=== PATIENT | male | born 1980 | race Caucasian/White ===

== ENCOUNTER 2020-05-20 15:47 | Outpatient (REF) | payer MEDICAID, SELFPAY ==
[2020-05-22 15:38] LABS: COVID-19 RT-PCR Result Not Detected ((See Note))
== END 2020-05-20 16:07 ==
LOC: LBN 15:47
PROVIDERS: PCP Nurse Practitioner Adult Health; Visit Provider Nurse Practitioner Adult Health
DX: I63.512 Cerebral infarction due to unspecified occlusion or stenosis of left middle cerebral artery (principal); G81.91 Hemiplegia, unspecified affecting right dominant side; I69.391 Dysphagia following cerebral infarction
CPT/HCPCS: U0003

== ENCOUNTER 2020-05-27 11:22 | Outpatient (REF) | payer MEDICAID, SELFPAY ==
[2020-05-29 18:28] LABS: COVID-19 RT-PCR Result Not Detected ((See Note))
== END 2020-05-27 11:42 ==
LOC: LBN 11:22
PROVIDERS: PCP Nurse Practitioner Adult Health; Visit Provider Nurse Practitioner Adult Health
DX: Z11.59 Encounter for screening for other viral diseases (principal)
CPT/HCPCS: U0003

== ENCOUNTER 2020-06-05 15:48 | Outpatient (REF) | payer MEDICAID, SELFPAY ==
[2020-06-06 02:30] LABS: COVID-19 RT-PCR UVMMC Result Negative (Negative)
== END 2020-06-05 16:08 ==
LOC: LBN 15:48
PROVIDERS: PCP Family Medicine; Visit Provider Nurse Practitioner Adult Health
DX: Z11.59 Encounter for screening for other viral diseases (principal)
CPT/HCPCS: U0003

== ENCOUNTER 2020-06-10 11:54 | Outpatient (REF) | payer MEDICAID, SELFPAY ==
[2020-06-10 12:54] LABS: HCT 43.7 % (40.0-50.0)
== END 2020-06-10 12:14 ==
LOC: LBN 11:54
PROVIDERS: PCP Family Medicine; Visit Provider Family Medicine
DX: K64.9 Unspecified hemorrhoids (principal)
CPT/HCPCS: 85014; 85018

== ENCOUNTER 2020-12-08 19:42 | Outpatient (REF) | payer MEDICAID, SELFPAY ==
[2020-12-11 17:57] LABS: COVID-19 RT-PCR Result Not Detected ((See Note))
== END 2020-12-08 19:43 | disposition home or self-care (01) ==
LOC: LBN 19:42
PROVIDERS: PCP Family Medicine; Visit Provider Nurse Practitioner Adult Health
DX: Z20.822 Contact with and (suspected) exposure to COVID-19 (principal)
CPT/HCPCS: U0003

== ENCOUNTER 2020-12-13 20:30 | Outpatient (REF) | payer MEDICAID, SELFPAY ==
[2020-12-14 16:28] LABS: COVID-19 RT-PCR Result Not Detected ((See Note))
== END 2020-12-13 20:31 | disposition home or self-care (01) ==
LOC: LBN 20:30
PROVIDERS: PCP Family Medicine; Visit Provider Nurse Practitioner Adult Health
DX: Z20.822 Contact with and (suspected) exposure to COVID-19 (principal)
CPT/HCPCS: U0003

== ENCOUNTER 2021-04-30 02:14 | Outpatient (CLI) | payer MEDICAID, SELFPAY ==
--- NOTE | 2021-04-30 11:32 | DI.RAD_ITS ---
Exam(s) XR FOOT RT COMPLETE EXAM: XR FOOT RT COMPLETE CLINICAL HISTORY: S/P FALL, PAIN, M79.606. TECHNIQUE: 2D digital imaging was performed. COMPARISON: No exams were available for comparison FINDINGS: There is no evidence of fracture nor diastasis of the Lisfranc joint. No osseous lesions nor erosion s. Multiple small metallic densities are seen posterior to the ankle, located posterolaterally. The re lowermost density projects over the upper calcaneus. No obvious degenerative changes. IMPRESSION: DATA REPOSITORY: RADIATION DOSE DELIVERED:
--- NOTE | 2021-04-30 11:32 | DI.RAD_ITS ---
Exam(s) XR TIB/FIB RT EXAM: XR TIB/FIB RT CLINICAL HISTORY: S/P FALL, PAIN, M79.606. TECHNIQUE: 2D digital imaging was performed. COMPARISON: No exams were available for comparison FINDINGS: There is no evidence fracture nor dislocation. Radiopaque foreign body metallic densities are noted behind the ankle. Is no radiographic evidence of osteomyelitis. IMPRESSION: DATA REPOSITORY: RADIATION DOSE DELIVERED:
--- NOTE | 2021-04-30 11:34 | DI.RAD_ITS ---
Exam(s) XR ANKLE RT COMPLETE EXAM: XR ANKLE RT COMPLETE CLINICAL HISTORY: S/P FALL, PAIN, M79.606. TECHNIQUE: 2D digital imaging was performed. COMPARISON: No exams were available for comparison FINDINGS: There are 4 metallic density seen posteriorly lateral of center. Lower most is seen projected over t he posterior aspect the calcaneus. These do not have appearance of typical surgical clips and theref ore may indeed represent metallic foreign bodies at this location. No obvious disruption of the Achi lles tendon. Calcaneus appears unremarkable as does the visualized ankle joint. IMPRESSION: DATA REPOSITORY: RADIATION DOSE DELIVERED:
== END 2021-04-30 02:34 ==
PROVIDERS: PCP Family Medicine; Visit Provider Nurse Practitioner Family
DX: G89.11 Acute pain due to trauma (principal); M79.661 Pain in right lower leg; M79.671 Pain in right foot; M25.571 Pain in right ankle and joints of right foot; W19.XXXA Unspecified fall, initial encounter
CPT/HCPCS: 73590; 73610; 73630

== ENCOUNTER 2021-11-07 14:14 | Outpatient (REF) | payer MEDICAID, SELFPAY ==
[2021-11-07 15:17] LABS: Abs Immature Grans 0.02 10^3/uL (0.0-0.06); Absolute Basophil Count 0.04 10^3/uL (0.0-0.2); Absolute Eosinophil Count 0.31 10^3/uL (0.0-0.7); Absolute Lymphocyte Count 2.95 10^3/uL (1.2-3.4); Absolute Monocyte Count 0.68 10^3/uL (0.1-0.8); Absolute Neutrophil Count 2.59 10^3/uL (1.2-6.7); Basophils % 0.6; Eosinophils % 4.7; HCT 46.5 % (40.0-50.0); HGB 15.4 g/dL (13.5-17.5); Immature Grans % 0.3; Lymphocytes % 44.8; MCHC 33.1 % (32.0-36.0); MCV 93.6 fL (80-95); MPV 9.6 fL (8.0-11.0); Monocytes % 10.3; Neutrophils % 39.3; Nucleated RBC 0 %; Platelet Count 238 10^3/uL (130-400); RBC 4.97 10^6/uL (4.36-5.78); RDW 13.9 % (11.8-14.1); RDW-SD 47.8 fL; WBC 6.59 10^3/uL (4.4-10.8)
[2021-11-07 15:23] LABS: VALPROIC ACID 116.1 ug/mL
[2021-11-07 15:29] LABS: ALT 29 U/L (16-63); AST 16 U/L (15-37); Alkaline Phosphatase 57 U/L (46-116); Anion Gap 10.1 mmol/L (3-11); BUN 15 mg/dL (7-18); Bilirubin, Total 0.4 mg/dL (0.2-1.0); CO2 26.9 mmol/L (21.0-32.0); CREATININE 0.8 mg/dL (0.70-1.30); Calcium 9.2 mg/dL (8.5-10.1); Chloride 101 mmol/L (98-107); Glucose 80 mg/dL (74-106); Potassium 4.7 mmol/L (3.5-5.1); Sodium 138 mmol/L (136-145); Total Protein 8.1 g/dL (6.4-8.2)
[2021-11-07 15:48] LABS: Bilirubin, Direct 0.1 mg/dL (0.0-0.2)
== END 2021-11-07 14:15 | disposition home or self-care (01) ==
LOC: LBN 14:14
PROVIDERS: PCP Family Medicine; Visit Provider Family Medicine
DX: R78.89 Finding of other specified substances, not normally found in blood (principal); R63.4 Abnormal weight loss; R56.9 Unspecified convulsions
CPT/HCPCS: 80048; 80076; 80164; 85025

== ENCOUNTER 2021-12-03 00:44 | Outpatient (CLI) | payer MEDICAID, SELFPAY ==
--- NOTE | 2021-12-03 10:45 | DI.CT_ITS ---
Exam(s) CT HEAD WO EXAM: CT HEAD WO CLINICAL HISTORY: FLUID FILLED POCKET LT EVANGELICAL, DROOPY RT EYE. TECHNIQUE: Imaging Protocol: Axial computed tomography images with coronal and sagittal reformatted images were created and reviewed COMPARISON: No exams were available for comparison FINDINGS: There is a left temporal and parietal craniotomy defect. There is a large area of encephalomalacia i nvolving the left temporal, frontal and parietal lobes. There is no evidence acute infarct or mass. There are coarse calcifications within the CSF collection. There is mild dilatation of the left lat eral ventricle. The cerebellum and brainstem are unremarkable. The orbits, sinuses and mastoid air cells are unremarkable. There is no evidence of fluid collection in the left temporal region. 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 Large left frontotemporoparietal craniotomy defec t. No acute abnormality. RADIATION DOSE DELIVERED: 820.06mGy.cm Total DLP DATA REPOSITORY: All CT scans at this facility are submitted to the National Radiology Data Registry (NRDR) Dose Index Registry (DIR) with the [employer] ([employer]). RADIATION OPTIMIZATION: All CT scans at this facility use at least one of these dose optimization te chniques: automated exposure control; mA and/or kV adjustment per patient size (includes targeted exa ms where dose is matched to clinical indication); or iterative reconstruction.
== END 2021-12-03 01:04 ==
PROVIDERS: PCP Family Medicine; Visit Provider Family Medicine
DX: G93.89 Other specified disorders of brain (principal); I63.512 Cerebral infarction due to unspecified occlusion or stenosis of left middle cerebral artery; Z48.811 Encounter for surgical aftercare following surgery on the nervous system; G81.91 Hemiplegia, unspecified affecting right dominant side
CPT/HCPCS: 70450

== ENCOUNTER 2022-09-23 09:58 | Outpatient (REF) | payer MEDICAID, SELFPAY ==
[2022-09-23 11:42] LABS: Abs Immature Grans 0.01 10^3/uL (0.0-0.06); Absolute Basophil Count 0.04 10^3/uL (0.0-0.2); Absolute Eosinophil Count 0.27 10^3/uL (0.0-0.7); Absolute Monocyte Count 0.46 10^3/uL (0.1-0.8); Absolute Neutrophil Count 2.88 10^3/uL (1.2-6.7); Basophils % 0.7; Eosinophils % 4.9; HCT 46.9 % (40.0-50.0); HGB 15.4 g/dL (13.5-17.5); Immature Grans % 0.2; Lymphocytes % 34.2; MCH 30.7 pg (27.0-33.0); MCHC 32.8 % (32.0-36.0); MCV 94 fL (80-95); MPV 10.9 fL (8.0-11.0); Monocytes % 8.3; Neutrophils % 51.7; Platelet Count 253 10^3/uL (130-400); RBC 5.01 10^6/uL (4.36-5.78); RDW 12.7 % (11.8-14.1); RDW-SD 43.8 fL; WBC 5.56 10^3/uL (4.4-10.8)
[2022-09-23 11:49] LABS: VALPROIC ACID 43.7 ug/mL
[2022-09-23 11:51] LABS: ALT 9 U/L (16-63); AST 10 U/L (15-37); Albumin 4.2 g/dL (3.4-5.0); Alkaline Phosphatase 72 U/L (46-116); Anion Gap 8.1 mmol/L (3-11); BUN 7 mg/dL (7-18); Bilirubin, Total 0.6 mg/dL (0.2-1.0); CO2 27.9 mmol/L (21.0-32.0); Calcium 9.7 mg/dL (8.5-10.1); Calculated LDL 187 mg/dL (<100); Chloride 99 mmol/L (98-107); Cholesterol 259 mg/dL (<200); Estimated GFR 95.77 (mL/min/1.73m2); Glucose 109 mg/dL (74-106); HDL Cholesterol 48 mg/dL (40-60); Potassium 4.4 mmol/L (3.5-5.1); Sodium 135 mmol/L (136-145); Total Protein 8.6 g/dL (6.4-8.2); Triglyceride 122 mg/dL (<150)
== END 2022-09-23 09:59 | disposition home or self-care (01) ==
LOC: LBN 09:58
PROVIDERS: PCP Family Medicine; Visit Provider Family Medicine
DX: I63.512 Cerebral infarction due to unspecified occlusion or stenosis of left middle cerebral artery (principal); G93.89 Other specified disorders of brain; F32.A Depression, unspecified
CPT/HCPCS: 80053; 80061; 80164; 85025

== ENCOUNTER 2023-01-08 19:04 | Outpatient (REF) | payer MEDICAID, SELFPAY ==
[2023-01-08 19:09] LABS: Abs Immature Grans 0.02 10^3/uL (0.0-0.06); Absolute Basophil Count 0.07 10^3/uL (0.0-0.2); Absolute Eosinophil Count 0.35 10^3/uL (0.0-0.7); Absolute Lymphocyte Count 3.09 10^3/uL (1.2-3.4); Absolute Monocyte Count 0.73 10^3/uL (0.1-0.8); Absolute Neutrophil Count 4.16 10^3/uL (1.2-6.7); Basophils % 0.8; Eosinophils % 4.2; HCT 44.3 % (40.0-50.0); Immature Grans % 0.2; Lymphocytes % 36.7; MCH 31.2 pg (27.0-33.0); MCHC 33.9 % (32.0-36.0); MCV 92 fL (80-95); MPV 10.9 fL (8.0-11.0); Monocytes % 8.7; Neutrophils % 49.4; Platelet Count 275 10^3/uL (130-400); RBC 4.81 10^6/uL (4.36-5.78); RDW 12.7 % (11.8-14.1); WBC 8.42 10^3/uL (4.4-10.8)
[2023-01-08 19:27] LABS: VALPROIC ACID 60.2 ug/mL
[2023-01-08 19:28] LABS: ALT 9 U/L (16-63); AST 8 U/L (15-37); Albumin 3.9 g/dL (3.4-5.0); Alkaline Phosphatase 74 U/L (46-116); Anion Gap 13.2 mmol/L (3-11); BUN 6 mg/dL (7-18); Bilirubin, Direct 0.1 mg/dL (0.0-0.2); Bilirubin, Total 0.4 mg/dL (0.2-1.0); CO2 24.8 mmol/L (21.0-32.0); Calcium 9.3 mg/dL (8.5-10.1); Chloride 102 mmol/L (98-107); Estimated GFR 95.18 (mL/min/1.73m2); Glucose 108 mg/dL (74-106); Potassium 4.3 mmol/L (3.5-5.1); Sodium 140 mmol/L (136-145); Total Protein 7.8 g/dL (6.4-8.2)
== END 2023-01-08 19:05 | disposition home or self-care (01) ==
LOC: LBN 19:04
PROVIDERS: PCP Family Medicine; Visit Provider Family Medicine
DX: I69.320 Aphasia following cerebral infarction (principal); G81.91 Hemiplegia, unspecified affecting right dominant side; Z51.81 Encounter for therapeutic drug level monitoring; Z79.899 Other long term (current) drug therapy; R56.9 Unspecified convulsions
CPT/HCPCS: 80048; 80076; 80164; 85025

== ENCOUNTER 2023-10-02 15:41 | Outpatient (REF) | payer MEDICAID, SELFPAY ==
[2023-10-02 16:33] LABS: Anion Gap 9.9 mmol/L (3-11); BUN 16 mg/dL (7-18); CO2 23.1 mmol/L (21.0-32.0); CREATININE 0.7 mg/dL (0.70-1.30); Calcium 9.3 mg/dL (8.5-10.1); Chloride 105 mmol/L (98-107); Estimated GFR 116.52 (mL/min/1.73m2); Glucose 88 mg/dL (74-106); Potassium 4.2 mmol/L (3.5-5.1); Sodium 138 mmol/L (136-145)
[2023-10-02 16:41] LABS: VALPROIC ACID 69.8 ug/mL
== END 2023-10-02 15:42 | disposition home or self-care (01) ==
LOC: LBN 15:41
PROVIDERS: PCP Family Medicine; Visit Provider Nurse Practitioner Adult Health
DX: I69.320 Aphasia following cerebral infarction (principal); Z87.820 Personal history of traumatic brain injury; M62.81 Muscle weakness (generalized)
CPT/HCPCS: 80048; 85027; 80164

== ENCOUNTER 2023-10-03 18:32 | Outpatient (REF) | payer MEDICAID, SELFPAY ==
[2023-10-03 13:20] LABS: HCT 41.6 % (40.0-50.0); HGB 14.1 g/dL (13.5-17.5); MCHC 33.9 % (32.0-36.0); MCV 94 fL (80-95); MPV 10.7 fL (8.0-11.0); Platelet Count 241 10^3/uL (130-400); RBC 4.41 10^6/uL (4.36-5.78); RDW-SD 45.1 fL; WBC 8.76 10^3/uL (4.4-10.8)
== END 2023-10-03 18:33 | disposition home or self-care (01) ==
LOC: LBN 18:32
PROVIDERS: PCP Family Medicine; Visit Provider Family Medicine
DX: R63.4 Abnormal weight loss (principal); M62.81 Muscle weakness (generalized); I63.512 Cerebral infarction due to unspecified occlusion or stenosis of left middle cerebral artery
CPT/HCPCS: 85027